=== PATIENT | female | born 1965 | race Caucasian/White ===

== ENCOUNTER 2016-11-30 08:11 | Day surgery (SDC) | payer OTHER ==
[2016-11-30] VITALS (10 sets, daily range): BP systolic 87–140; BP diastolic 54–72; PULSE 74–85; RESP 14–20
[~2016-11-30] VITALS: Ht 152.4 cm; Wt 70.8 kg
[~2016-11-30 08:11] MED LIST: CEFAZOLIN 2 GM/50 ML (PMX) 50 ML IVPB ONE; GEMF600T PO; LANT3I SC; METF-385 PO; OMEP40CA6 PO
[2016-11-30] MEDS ORDERED: METF-385 PO (09:18)
[2016-11-30 09:24] LABS: BASOPHIL # 0.1 10^3/ul (0.0-0.1); BASOPHILS % 0.7 % (0.0-2.0); EOSINOPHILS # 0.4 10^3/ul (0.0-0.5); EOSINOPHILS % 4.2 % (0.0-7.0); HEMATOCRIT 43.1 % (37.0-47.0); HEMOGLOBIN 13.9 g/dl (12.0-16.0); LYMPHOCYTES # 2.8 10^3/ul (0.8-2.9); LYMPHOCYTES % 29.9 % (15.0-51.0); MEAN CORPUSCULAR HEMOGLOBIN 25.8 pg (29.0-33.0); MEAN CORPUSCULAR HGB CONC 32.3 g/dl (32.0-37.0); MEAN CORPUSCULAR VOLUME 79.8 fl (82.0-101.0); MEAN PLATELET VOLUME 8.3 fl (7.4-10.4); MONOCYTE # 0.7 10^3/ul (0.3-0.9); MONOCYTES % 7.6 % (0.0-11.0); NEUTROPHIL # 5.4 10^3/ul (1.6-7.5); NEUTROPHILS % 57.6 % (39.0-77.0); PLATELET COUNT 270 10^3/UL (140-440); RED CELL DISTRIBUTION WIDTH 14.2 % (11.5-14.5); UNCORRECTED WBC 9.3 10^3/ul (4.8-10.8); WHITE BLOOD COUNT 9.3 10^3/ul (4.8-10.8)
[2016-11-30 09:33] LABS: CONDITION 1; LH ANALYZER COMMENTS 1
[2016-11-30 09:35] LABS: INR 0.95; PROTIME 12.7 Sec (12.2-14.2)
[2016-11-30 09:36] LABS: PARTIAL THROMBOPLASTIN TIME 28.4 Sec (25.0-35.0)
[2016-11-30 09:48] LABS: CALCIUM 9.1 mg/dl (8.4-10.2); CREATININE 0.51 mg/dl (0.44-1.00)
--- NOTE | 2016-11-30 10:08 | RADRPT ---
PROCEDURE: XR Chest. CLINICAL INDICATION: Preoperative examination TECHNIQUE: Single frontal view of the chest. COMPARISON: No priorchest radiograph. FINDINGS: The lungs are clear. No pleural effusion or pneumothorax. The cardiomediastinal silhouette is unremarkable. No acute osseous abnormalities. IMPRESSION: No acute abnormalities. RPTAT: AADD .Mika Avila MD, MD Date Time Electronically viewed and signed by .Mika Avila MD, on 11/30/2016 10:07 .B/
[2016-11-30] MEDS ORDERED: MIDAZOLAM 1 MG/ML 2 ML INJ ONE (10:36)
[2016-11-30] MEDS ORDERED: PROPOFOL 20 ML ONE (10:36)
[2016-11-30] MEDS ORDERED: SUCCINYLCHOLINE CHLORIDE 100 MG/5 ML SYG IV ONE (10:36)
[2016-11-30] MEDS ORDERED: CEFAZOLIN 1 GM INJ ONE (10:37)
[2016-11-30] MEDS ORDERED: FENTAnyl 50 MCG/ML VIAL ONE (10:37)
[2016-11-30] MEDS ORDERED: BUPIVACAINE 0.25% (MPF) 30 ML INJ ONE (10:41)
[2016-11-30] MEDS ORDERED: PHENYLephrine (100 MCG/ML) 5ML SYG ONE (11:09)
[2016-11-30] MEDS ORDERED: ONDANSETRON 4 MG INJ ONE (11:17)
[2016-11-30] MEDS ORDERED: FAMOTIDINE 20 MG INJ ONE (11:18)
[2016-11-30] MEDS ORDERED: ESMOLOL 10 ML ONE (11:26)
[2016-11-30] MEDS: SOD CHLORIDE 0.9% 1,000 ML IV SCH ×2 (11:29→11:54)
[2016-11-30] MEDS ORDERED: ONDANSETRON 4 MG INJ IV PRN (11:30)
[2016-11-30] MEDS ORDERED: MEPERIDINE 25 MG INJ IV PRN (11:30)
[2016-11-30] MEDS ORDERED: HYDROmorphONE (0.2 MG/ML) 10ML SYG IV PRN ×2 (11:30)
[2016-11-30] MEDS ORDERED: HYDROCODONE/APAP (5/325) TAB PO ONE (12:00)
--- NOTE | 2016-11-30 12:08 | OPR ---
DATE OF OPERATION: 11/30/2016 INDICATION: This is a 51-year-old female with hemorrhoids. She requests surgical excision. Risks, alternatives, benefits were discussed with the patient. Patient expresses understanding and consen ts to the operation. PREOPERATIVE DIAGNOSIS: Hemorrhoids. POSTOPERATIVE DIAGNOSIS: Hemorrhoids. OPERATION PERFORMED: Internal and external complex hemorrhoidectomy x2. SURGEON: Kenia Hook MD SPECIMEN: Left lateral right posterior hemorrhoidal columns. COMPLICATIONS: None. ANESTHESIA: General. PROCEDURE: The patient was taken to the OR, prepped and draped in the usual sterile fashion. Surgi jay timeout was performed. IV antibiotics given. RECTAL: Examination was performed. No masses were identified. The left lateral column was grasped with [place]. The internal external hemorrhoidal complex was excised using a 15 blade and hand held LigaSure. Attention was then paid to the right posterior column. This was addressed the same similar fashion with Penningtons and excised with a 15 blade and handheld LigaSure. There was good hemostasis. Local anesthesia was injected. Dry dressings were applied. Dictated By: KENIA CERDA/JUAN C Conf#: [id number] DID#: [id number]
[2016-11-30] MEDS ORDERED: HYDROmorphONE 1 MG/ML SYG IV STA (13:22)
[2016-11-30] MEDS ORDERED: ONDANSETRON 4 MG INJ IV STA (13:22)
--- NOTE | 2016-12-01 12:13 | RADRPT ---
Vent Rate: 63 bpm RR Interval: 0 msec [place] Interval: 192 msec QRS Duration: 76 msec QT Interval: 416 msec QTC Interval: 425 msec P-R-T [place]: 43 - 35 - 33 degrees Normal sinus rhythm Normal ECG Electronically Signed By: Javid Gonsalez [id number]
== END 2016-11-30 16:00 | disposition home or self-care (01) ==
LOC: SDS 08:11
PROVIDERS: ATTEND Surgery
DX: K64.8 Other hemorrhoids (principal); K64.4 Residual hemorrhoidal skin tags; E11.9 Type 2 diabetes mellitus without complications
CPT/HCPCS: 46260; 71010; 80048; 82962; 85025; 85610; 85730; 88305; 93005; J0330; J0690; J1170; J2250; J2405; J3010; Z7512; Z7610; J2370

== ENCOUNTER 2019-02-28 08:38 | Day surgery (SDC) | payer OTHER ==
[~2019-02-28] VITALS: Ht 152.4 cm; Wt 70.8 kg
[~2019-02-28 08:38] MED LIST changes: -CEFAZOLIN 2 GM/50 ML (PMX) 50 ML IVPB ONE; -GEMF600T PO; -METF-385 PO; +METF850T13 PO
[2019-02-28] MEDS ORDERED: NAPROXEN (09:53)
[2019-02-28] MEDS ORDERED: PRAVASTATIN (09:53)
[2019-02-28 10:00] VITALS: BP 136/63; PULSE 52; RESP 22
[2019-02-28] MEDS ORDERED: ATROPINE 1 MG/10 ML SYRINGE ONE (11:15)
[2019-02-28] MEDS ORDERED: FENTAnyl 50 MCG/ML VIAL ONE (11:16)
[2019-02-28] MEDS ORDERED: MIDAZOLAM 1 MG/ML 2 ML INJ ONE ×2 (11:16)
[2019-02-28 11:27] VITALS: PULSE 60; RESP 20
[2019-02-28 11:37] VITALS: PULSE 60; RESP 20
[2019-02-28 11:52] VITALS: BP 150/65; PULSE 60; RESP 20
== END 2019-02-28 13:35 | disposition home or self-care (01) ==
LOC: GIL 08:38
PROVIDERS: ATTEND Internal Medicine Gastroenterology
DX: Z12.11 Encounter for screening for malignant neoplasm of colon (principal); K64.4 Residual hemorrhoidal skin tags; K64.8 Other hemorrhoids; E11.9 Type 2 diabetes mellitus without complications
CPT/HCPCS: 45378; 82962; J0461; J2250; J3010